=== PATIENT | male | born 1960 | race Caucasian/White ===

== ENCOUNTER 2016-05-12 13:22 | Emergency (ER) | payer SELFPAY ==
[~2016-05-12] VITALS: Ht 177.8 cm; Wt 72.6 kg
--- NOTE | 2016-05-12 13:22 | NUR ---
Pt placed in bed 6 by EMS.
[2016-05-12 13:24] VITALS: BP 176/85
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
--- NOTE | 2016-05-12 14:00 | NUR ---
[place] [employer] at bedside.
--- NOTE | 2016-05-12 14:23 | NUR ---
Patient taken to CT via gurney.
--- NOTE | 2016-05-12 14:32 | NUR ---
Patient returned from CT scan.
--- NOTE | 2016-05-12 14:48 | NUR ---
Patient ambulated to restroom with steady gait to provide UA.
[2016-05-12 15:31] VITALS: BP 176/85
--- NOTE | 2016-05-12 15:32 | NUR ---
Chart checked and completed. The patient's care was reviewed and supervised by Rashi Mendoza RN.
== END 2016-05-12 14:48 | disposition home or self-care (01) ==
LOC: MED 13:29
DX: S16.1XXA Strain of muscle, fascia and tendon at neck level, initial encounter (principal); S09.90XA Unspecified injury of head, initial encounter; R03.0 Elevated blood-pressure reading, without diagnosis of hypertension; W18.09XA Striking against other object with subsequent fall, initial encounter; Y93.89 Activity, other specified; Y92.89 Other specified places as the place of occurrence of the external cause; Y99.0 Civilian activity done for income or pay

== ENCOUNTER 2018-01-28 12:35 | Inpatient (IN) | payer MEDICAID ==
[~2018-01-28] VITALS: Ht 175.3 cm; Wt 63.5 kg
--- NOTE | 2018-01-28 12:37 | NUR ---
PATIENT AMBULATED TO BED 4 AT THIS TIME.
[2018-01-28 12:40] VITALS: BP 174/97
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
--- NOTE | 2018-01-28 12:48 | NUR ---
Dr. Bennett evaluating patient at bedside.
[2018-01-28] MEDS ORDERED: KETOROLAC 60 MG/2 ML VIAL IM ONE (12:55)
--- NOTE | 2018-01-28 13:05 | NUR ---
PT TAKEN TO [facility] VIA W/C, ACCOMPANIED BY EXECUTIVE SECRETARY.
--- NOTE | 2018-01-28 13:19 | NUR ---
pt returned from [facility] VIA W/C, ACCOMPANIED BY SCOOP OPERATOR.
[2018-01-28] MEDS ORDERED: NACL 0.9% 1,000 ML IV ONE (13:25)
--- NOTE | 2018-01-28 13:34 | NUR ---
PT TAKEN TO CT VIA GUSHAHEEN, ACCOMPANIED BY BLOCK HANDLER.
[2018-01-28 13:54] LABS: BASOPHILS % (AUTO) 0.6 % (0.0-2.0); EOSINOPHILS # (AUTO) 0.2 K/uL (0-0.4); EOSINOPHILS % (AUTO) 2.3 % (0.0-4.0); HEMATOCRIT 40.8 % (36-52); HEMOGLOBIN 13.5 g/dL (12.0-18.0); LYMPHOCYTES # (AUTO) 1.4 K/uL (2.0-11.5); LYMPHOCYTES % (AUTO) 19.7 % (20.5-51.1); MEAN CORPUSCULAR HEMOGLOBIN 30 pg (27-31); MEAN CORPUSCULAR HGB CONC 33 g/dL (33-37); MEAN CORPUSCULAR VOLUME 91.2 fL (80-94); MONOCYTES # (AUTO) 0.9 K/uL (0.8-1.0); MONOCYTES % (AUTO) 12.6 % (1.7-9.3); NEUTROPHILS # (AUTO) 4.6 K/uL (1.8-7.7); NEUTROPHILS % (AUTO) 64.8 % (42.2-75.2); PLATELET COUNT (AUTO) 265 K/uL (140-450); RED BLOOD CELL COUNT(AUTO) 4.48 MIL/uL (4.20-6.10); RED CELL DISTRIBUTION WIDTH 13.9 % (11.6-13.7); WHITE BLOOD COUNT (AUTO) 7.2 K/uL (4.8-10.8)
[2018-01-28 14:11] LABS: PROTHROMBIN TIME 9.5 secs (10.8-13.4)
[2018-01-28 14:29] LABS: ANION GAP 4.1 (8-16); CARBON DIOXIDE 34.7 mmol/L (21-32); CREATININE 0.9 mg/dL (0.7-1.3); POTASSIUM 3.8 mmol/L (3.5-5.1); TOTAL BILIRUBIN 0.2 mg/dL (0.0-1.0)
[2018-01-28 14:30] LABS: ALBUMIN 3.3 g/dL (3.4-5.0)
--- NOTE | 2018-01-28 14:34 | NUR ---
Patient appears to be SLEEPING comfortably in bed. BP 159/91. Respirations even and unlabored.WILL CONTINUE TO MONITOR.
--- NOTE | 2018-01-28 15:15 | NUR ---
RECEIVED PT ROM ER NURSE, MASON, PT IS AWAKE AND ALERT AND ORIENTED, AMBULATES AND NO SOB NOTED. PT HAS AN IV LINE ON THE RT AC G. 18, INTACT. INITIAL VITALS TAKEN AND IS WITHIN NORMAL LIMITS. PT WAS PLACED ON TELE MONITORING, ASSISTED TO THE BED, WITH SIDE RAILS UP AND CALL LIGHT WITHIN REACH. SKIN IS INTACT. NO SIGN OF DISTRESS NOTED AND WILL CONTINUE TO MONITOR PT.
--- NOTE | 2018-01-28 15:15 | NUR ---
Patient will be admitted to care of DR BELLAMY. Admited to TELE. Will go to room 111B. Belongings list completed. Report to SAMUEL DUMONT .
[2018-01-28 15:20] VITALS: BP 146/81
--- NOTE | 2018-01-28 15:25 | NUR ---
DR. MALDONADO CAME AND SPOKE TO PT. AT BEDSIDE.
--- NOTE | 2018-01-28 15:35 | NUR ---
MRSA SWAB WAS DONE TO THE PT AND SAMPLE WAS SENT TO THE LAB.
--- NOTE | 2018-01-28 15:50 | NUR ---
INITIAL ASSESSMENT DONE TO PT. PT DENIES PAIN AT THIS TIME.
[2018-01-28] MEDS: NACL 0.9% 1,000 ML IV SCH (15:58)
[2018-01-28 16:00] VITALS: BP 144/84
[2018-01-28] MEDS ORDERED: ZOLPIDEM 5 MG TAB PO PRN (16:00)
[2018-01-28] MEDS ORDERED: DOCUSATE SODIUM 100 MG GELCAP PO PRN (16:00)
[2018-01-28] MEDS ORDERED: LORazepam 2 MG/ML VIAL IM/IVP PRN (16:00)
[2018-01-28] MEDS ORDERED: ACETAMINOPHEN 325 MG TAB PO PRN (16:00)
[2018-01-28] MEDS ORDERED: ONDANSETRON 4 MG/2 ML VIAL IM/IVP PRN (16:00)
[2018-01-28 17:29] LABS: CHOL/HDL RATIO 3.3 (1-4.5); HDL CHOLESTEROL 48 mg/dL (40-60); LDL (CALC) 85 mg/dL (60-100); LIPASE 112 U/L (73-393); PHOSPHORUS 2.7 mg/dL (2.5-4.9); THYROID STIMULATING HORMONE 2.36 uIU/mL (0.34-3.74); TRIGLYCERIDES 134 mg/dL (30-150)
--- NOTE | 2018-01-28 19:08 | NUR ---
BEDSIDE REPORT GIVEN TO NADIA PAREDES -TIM. IVF INFUSING WELL. IN STABLE CONDITION.
[2018-01-28 19:09] LABS: APPEARANCE,URINE CLEAR (CLEAR); COLOR,URINE YELLOW (YELLOW); LEUKOCYTE ESTERASE ,URINE NEGATIVE (NEGATIVE); NITRITE, URINE NEGATIVE (NEGATIVE)
--- NOTE | 2018-01-28 19:10 | NUR ---
RECEIVED PT ON HIGH FOWLERS POSITION TALKING TO VISITOR AT BEDSIDE, VITAL SIGNS STABLE, SAT-96% ON ROOM AIR, DIMINISHED LUNG SOUNDS ON THE RT, NO SOB NOTED, COMPLAINING OF PAIN ON THE RT CHEST, WILL MEDICATE PRN, IVF INFUSING WELL, PLAN OF CARE DISCUSSED, SAFETY MEASURES IN PLACE, CALL LIGHT WITHIN REACH.
[2018-01-28 19:11] LABS: BILIRUBIN,URINE NEGATIVE (NEGATIVE); BLOOD, URINE NEGATIVE (NEGATIVE); UGLUCOSE NEGATIVE (NEGATIVE)
[2018-01-28] MEDS: HYDROcodone/APAP 5/325 MG 1 TAB TAB PO PRN (19:25)
--- NOTE | 2018-01-28 19:30 | NUR ---
RT SOLARES PUT PT ON VENTI MASK AT 40% PER DR'S ORDER, SAT WENT UP TO 100%, ALL NEEDS ATTENDED.
[2018-01-28 19:31] LABS: BARBITURATE, URINE NEGATIVE ng/ml (NEG <=200); BENZODIAZEPINE, URINE NEGATIVE ng/mL (NEG <=200); CANNABINOID, URINE NEGATIVE ng/mL (NEG <=50); COCAINE, URINE NEGATIVE ng/mL (NEG <=300); PHENCYCLIDINE SCREEN,URINE NEGATIVE ng/mL (NEG <=25)
[2018-01-28 19:32] LABS: OPIATE, URINE NEGATIVE ng/mL (NEG <=2000)
[2018-01-28 20:00] VITALS: BP 143/78
--- NOTE | 2018-01-28 20:00 | NUR ---
DR ARREOLA SAW THE PT, STATED TO PUT PT ON CONTINUOS PULSE OX. RT SOLARES MADE AWARE.
--- NOTE | 2018-01-28 23:20 | NUR ---
PT WENT TO CT DEPT FOR CT OF THE HEAD.
[2018-01-29] VITALS: BP 152/84
--- NOTE | 2018-01-29 00:10 | NUR ---
PT BACK FROM CT, PUT BACK ON VENTURI MASK 40% FIO2, SAT-99%, VITAL SIGNS TAKEN, BP SLIGHTLY ELEVATED, ASYMPTOMATIC, DENIES PAIN AT THIS TIME, IVF INFUSING WELL, SIGNIFICANT OTHER AT BEDSIDE, CONTINUE TO MONITOR CLOSELY.
[2018-01-29] MEDS: HYDROcodone/APAP 5/325 MG 1 TAB TAB PO PRN ×2 (01:35→18:40)
--- NOTE | 2018-01-29 02:30 | NUR ---
ROUNDS MADE, SEEN SIGNIFICANT OTHER SLEEPING BESIDE PT, CHARGE NURSE CORI TOLD HER THAT ONLY PT CAN LAY ON THE BED AND SHE CAN USE THE CHAIR INSTEAD, PT AMENABLE AT THIS TIME.
[2018-01-29] MEDS: NACL 0.9% 1,000 ML IV SCH ×3 (02:50→19:24)
[2018-01-29 04:00] VITALS: BP 139/81
--- NOTE | 2018-01-29 04:00 | NUR ---
PT SLEEPING, EASILY AROUSABLE, DENIES PAIN, NO SOB NOTED, CONTINUE ON VENTURI MASK AT 40% FIO2, MONITORED CLOSELY.
--- NOTE | 2018-01-29 06:45 | NUR ---
PT SEEN WITH MASK OFF, SAT-96-97%, EDUCATE PT THE NEED TO BE ON VENTURI MASK AT ALL TIMES, VERBALIZED UNDERSTANDING, SEEN SIGNIFICANT OTHER SLEEPING ON THE FLOOR, CHARGE NURSE CORI TOLD HER NOT TO SLEEP ON THE FLOOR AND WILL PROVIDE HER WITH ANOTHER CHAIR TO USE.
[2018-01-29 07:00] LABS: HEMATOCRIT 36.5 % (36-52); HEMOGLOBIN 12.2 g/dL (12.0-18.0); LYMPHOCYTES % (AUTO) 20.7 % (20.5-51.1); MEAN CORPUSCULAR HEMOGLOBIN 31 pg (27-31); MEAN CORPUSCULAR HGB CONC 33 g/dL (33-37); MEAN CORPUSCULAR VOLUME 92.3 fL (80-94); NEUTROPHILS % (AUTO) 61.9 % (42.2-75.2); PLATELET COUNT (AUTO) 252 K/uL (140-450); RED BLOOD CELL COUNT(AUTO) 3.96 MIL/uL (4.20-6.10); RED CELL DISTRIBUTION WIDTH 13.3 % (11.6-13.7)
[2018-01-29 07:01] LABS: BASOPHILS # (AUTO) 0.1 K/uL (0.00-0.22); BASOPHILS % (AUTO) 0.8 % (0.0-2.0); EOSINOPHILS # (AUTO) 0.2 K/uL (0-0.4); LYMPHOCYTES # (AUTO) 1.5 K/uL (2.0-11.5); MONOCYTES % (AUTO) 13.6 % (1.7-9.3); NEUTROPHILS # (AUTO) 4.2 K/uL (1.8-7.7)
[2018-01-29 07:26] LABS: CREATININE 0.9 mg/dL (0.7-1.3)
--- NOTE | 2018-01-29 07:30 | NUR ---
PT AWAKE, EATING BREAKFAST, PUT PT ON NASAL CANNULA AT 2L, SAT-97%, NO SOB NOTED, REPORT GIVEN TO TIM BAKER FOR CONTINUITY OF CARE.
[2018-01-29 07:32] LABS: CARBON DIOXIDE 33.6 mmol/L (21-32); POTASSIUM 4.2 mmol/L (3.5-5.1)
[2018-01-29 07:33] LABS: ANION GAP 4.6 (8-16)
--- NOTE | 2018-01-29 07:35 | NUR ---
RECEIVED PT FROM PHOTOGRAPHIC PRESS SCREWMAKER NURSENADIA, PT IS AWAKE LYING ON THE BED WITH O2 ON NC PLACED AT 2L, NO SOB WITH RT AC G.18 IV LINE NS AT 60ML/HR INFUSING AND INTACT. SAFETY PRECAUTION ENFORCED, BED IN LOW POSITION AND SIDE RAILS ARE UP AND CALL LIGHT WITHIN REACH, GIRLFRIEND ON THE BEDSIDE. PT DENIES PAIN AT THIS TIME AND NO SIGN OF DISTRESS NOTED. WILL CONTINUE TO MONITOR PT.
[2018-01-29 08:00] VITALS: BP 132/78
--- NOTE | 2018-01-29 08:00 | NUR ---
PT IS AWAKE AND HAVING HIS BREAKFAST, GF ON THE BEDSIDE, VITAL SIGNS WERE TAKEN AND IS STABLE AND WITHIN NORMAL LIMITS. WILL MONITOR PT.
--- NOTE | 2018-01-29 08:30 | NUR ---
PATIENT HAS BEEN SCREENED AND CATEGORIZED HIGH NUTRITION RISK. PATIENT WILL BE SEEN WITHIN 1-2 DAYS OF ADMISSION. 01/29/18 01/30/[address]
[2018-01-29] MEDS: MORPHINE SULFATE 2 MG/ML SYR IVP PRN ×3 (10:37→20:51)
--- NOTE | 2018-01-29 10:37 | NUR ---
PT IS AWAKE, WITH GIRLFRIEND ON THE BEDSIDE, PT VERBALIZED A PAIN RATE OF 8/10, MEDICATED WITH MORPHINE VIA IVP AND PT TOLERATED IT, VITAL SIGNS WAS CHECKED AND WITHIN NORMAL LIMITS. WILL RE-ASSESS PAIN IN AN HOUR AND MONITOR PT.
--- NOTE | 2018-01-29 12:17 | NUR ---
01/29/18 RD INITIAL ASSESSMENT COMPLETED PLEASE REFER TO NUTRITION ASSESSMENT UNDER CARE ACTIVITY FOR ESTIMATED NUTRITIONAL NEEDS. 1. CONTINUE REGULAR DIET TOLERATED 2. RD PROVIDED GENERAL HEALTHY EATING EDUCATION AND HANDOUT. PT ACCEPTED. 3. RD TO FOLLOW-UP 5-7 DAYS, LOW RISK TONEY PARKER, RD
[2018-01-29 12:31] LABS: FOLIC ACID 11.1 ng/mL (>3.0)
--- NOTE | 2018-01-29 13:00 | NUR ---
ENDORSED PT TO AM RN, CRISTINE FOR CONTINUITY OF CARE. PT IOS STABLE AT THIS TIME, V/S ARE WITHIN NORMAL LIMITS.
--- NOTE | 2018-01-29 13:01 | NUR ---
RECEIVED BEDSIDE REPORT FROM SAMUEL. PATIENT SHOWS NO SIGNS OF DISTRESS ON 2L NC. O2SAT MONITOR AT BEDSIDE. ALERT AND ORIENTEDX4. R AC 18G INFUSING NS AT 60. CLEAN, DRY AND INTACT. NO COMPLAINTS AT THIS TIME. BED IN LOW POSITION. CALL LIGHT WITHIN REACH. WILL CONTINUE TO MONITOR THE PATIENT
--- NOTE | 2018-01-29 14:45 | NUR ---
AWAKE AND ALERT RESPONSIVE TOLERATED INCENTIVE SPIROMETRY THERAPY WELL WITHOUT INCIDENT ENCOURAGED PATIENT WITH ACKNOWLEDGEMENT TO USE IS EVERY 1-2 HOURS WHILE AWAKE
--- NOTE | 2018-01-29 15:17 | NUR ---
PATIENT IN NO SIGNS OF DISTRESS. BED IN LOW POSITION. WILL CONTINUE OT MONITOR. PT WATCHING TV
[2018-01-29 16:00] VITALS: BP 148/80
--- NOTE | 2018-01-29 16:56 | NUR ---
PATIENT IS SLEEPING. NO SIGNS OF DISTRESS ON 2L NC. WILL CONTINUE TO MONITOR THE PATIENT. GIRLFRIEND AT BEDSIDE
--- NOTE | 2018-01-29 18:45 | NUR ---
ADMINISTERED PAIN MED. PATIENT AMBULATED TO THE RESTROOM. WILL CONTINUE TO MONITOR THE PATIENT
--- NOTE | 2018-01-29 19:20 | NUR ---
GAVE BEDSIDE REPORT TO IP LITIGATION ASSOCIATE NURSE. PATIENT ENDORSED IN STABLE CONDITION. ENDORSED ALIYAH TO DO PAIN REASSESSMENT FOR [place]
--- NOTE | 2018-01-29 19:21 | NUR ---
RECD. RESTING IN BED, AWAKE, A/OX4. NOTED BRUISE ON THE RIGHT SIDE OF FACE. RESPIRATION EVEN AND UNLABORED. IV OF NS AT 60 ML/HR INFUSING, RIGHT AC G20. ON 02 AT 2 LITERS VIA N/C, SATURATING 97%. LUNGS CLEAR ON BILATERAL AUSCULTATION. PLAN OF CARE FOR THE SHIFT DISCUSSED. VERBALIZED UNDERSTANDING. PAIN IN THE ABDOMEN 04/24, WAS MEDICATED BY AM NURSE AT 1840. WILL CONTINUE TO MONITOR AND MEDICATE ORDERED. AT THE BEDSIDE.
--- NOTE | 2018-01-29 19:45 | NUR ---
DR. ARREOLA CAME AND CHECKED PATIENT, EXPLAINED THAT HE IS NOT DOING SURGERY, RIGHT PNEUMOTHORAX SMALL BUT WILL CONTINUE TO OBSERVATION.
[2018-01-29 20:00] VITALS: BP 153/88
--- NOTE | 2018-01-29 20:00 | NUR ---
Patient's Plan of Care was discussed and reviewed with CLINICAL PATHOLOGIST: ALIYAH ORELLANA LVN.
--- NOTE | 2018-01-29 21:00 | NUR ---
RESTING IN BED COMFORTABLY, 02 SAT - 97%.
[2018-01-30] VITALS: BP 147/76
--- NOTE | 2018-01-30 | NUR ---
ASLEEP IN BED, NO COMPLAINT OF PAIN 0/10.
[2018-01-30 04:00] VITALS: BP 128/74
--- NOTE | 2018-01-30 07:00 | NUR ---
ABLE TO SLEEP WELL. ALL NEEDS ATTENDED. NO SOB NOTED DURING SHIFT. CONDITION REMAIN STABLE. WILL ENDORSE TO AM NURSE FOR CONTINUITY OF CARE.
--- NOTE | 2018-01-30 07:20 | NUR ---
ENDORSED TO TIM GUTHRIE FOR CONTINUITY OF CARE.
[2018-01-30 07:28] LABS: BASOPHILS % (AUTO) 0.6 % (0.0-2.0); EOSINOPHILS # (AUTO) 0.1 K/uL (0-0.4); EOSINOPHILS % (AUTO) 2.2 % (0.0-4.0); HEMATOCRIT 37.7 % (36-52); HEMOGLOBIN 12.5 g/dL (12.0-18.0); LYMPHOCYTES # (AUTO) 1.6 K/uL (2.0-11.5); LYMPHOCYTES % (AUTO) 25.8 % (20.5-51.1); MEAN CORPUSCULAR HEMOGLOBIN 30 pg (27-31); MEAN CORPUSCULAR HGB CONC 33 g/dL (33-37); MEAN CORPUSCULAR VOLUME 90.8 fL (80-94); MONOCYTES # (AUTO) 0.8 K/uL (0.8-1.0); MONOCYTES % (AUTO) 13.3 % (1.7-9.3); NEUTROPHILS # (AUTO) 3.7 K/uL (1.8-7.7); NEUTROPHILS % (AUTO) 58.1 % (42.2-75.2); PLATELET COUNT (AUTO) 255 K/uL (140-450); RED BLOOD CELL COUNT(AUTO) 4.15 MIL/uL (4.20-6.10); RED CELL DISTRIBUTION WIDTH 13.6 % (11.6-13.7); WHITE BLOOD COUNT (AUTO) 6.4 K/uL (4.8-10.8)
--- NOTE | 2018-01-30 07:30 | NUR ---
RECEIVED PT REPORT FROM CAR ELECTRONICS INSTALLER RN AT BEDSIDE. PT IS SLEEPING, AROUSED TO NAME, OX4. RESPIRATION EVEN AND UNLABORED. IV CATH TO RIGHT AC 20G, INTACT AND ASYMPTOMATIC. ON 2L O2 VIA NC. LUNGS CLEAR ON BILATERAL AUSCULTATION. PLAN OF CARE DISCUSSED. PT VERBALIZED UNDERSTANDING. NO C/O AT THIS TIME. WILL CONTINUE TO MONITOR. AT THE BEDSIDE.
[2018-01-30 08:00] VITALS: BP 146/81
[2018-01-30 08:07] LABS: ANION GAP 7.1 (8-16); CARBON DIOXIDE 32.2 mmol/L (21-32); CREATININE 0.8 mg/dL (0.7-1.3); POTASSIUM 4.3 mmol/L (3.5-5.1)
--- NOTE | 2018-01-30 08:30 | NUR ---
O2 SAT 91% TO 95% ON ROOM AIR. NO S/S OF ACUTE DISTRESS.
[2018-01-30] MEDS ORDERED: ACET-2863 PO (08:57)
[2018-01-30] MEDS: MORPHINE SULFATE 2 MG/ML SYR IVP PRN (12:03)
--- NOTE | 2018-01-30 12:10 | NUR ---
PT WANTS SHOWER. IV CATH WRAPPED.
--- NOTE | 2018-01-30 13:05 | NUR ---
PT DISCHARGED PER MD ORDER. PT DISCHARGE INSTRUCTION AND MED TEACHING PROVIDED. PT VERBALIZED UNDERSTANDING. NO S/S OF ACUTE DISTRESS NOTED. IV DC'ED, TIP INTACT, PRESSURE APPLIED. PT LEFT WITH HIS , IN STABLE CONDITION. PT LEFT WITH ALL HIS BELONGINGS.
== END 2018-01-30 13:05 | disposition home or self-care (01) | DRG 135 ==
LOC: MED 12:35 → MTU 14:45
PROVIDERS: ADMIT General Practice; ATTEND General Practice
DX: S27.2XXA Traumatic hemopneumothorax, initial encounter (principal); J96.00 Acute respiratory failure, unspecified whether with hypoxia or hypercapnia; E44.0 Moderate protein-calorie malnutrition; S22.41XA Multiple fractures of ribs, right side, initial encounter for closed fracture; F15.10 Other stimulant abuse, uncomplicated; F17.210 Nicotine dependence, cigarettes, uncomplicated; F90.9 Attention-deficit hyperactivity disorder, unspecified type; W03.XXXA Other fall on same level due to collision with another person, initial encounter; F10.20 Alcohol dependence, uncomplicated; Y90.0 Blood alcohol level of less than 20 mg/100 ml; J98.11 Atelectasis; Y93.89 Activity, other specified; Y92.89 Other specified places as the place of occurrence of the external cause; Y99.8 Other external cause status; Z71.41 Alcohol abuse counseling and surveillance of alcoholic; Z71.51 Drug abuse counseling and surveillance of drug abuser
CPT/HCPCS: 36415; 70450; 71045; 71101; 76604; 80048; 80053; 80305; 81003; 82140; 82607; 82746; 83036; 83690; 83735; 83880; 84100; 84134; 84443; 85025; 85610; 85730; 87081; 93005; 96360; 96361; 96372; 99285; G0482; J1885; J2270; J7030; Q0092

== ENCOUNTER 2018-06-06 06:19 | Inpatient (IN) | payer MEDICAID ==
[~2018-06-06] VITALS: Ht 177.8 cm; Wt 72.6 kg
[~2018-06-06 06:19] MED LIST: HYDR-5123 PO
[2018-06-06 06:26] VITALS: BP 182/95
--- NOTE | 2018-06-06 06:31 | NUR ---
Amb to bed 9 per self.
--- NOTE | 2018-06-06 06:45 | NUR ---
PT PRESENTS TO ED FOR EVALUATION OF ABDOMINAL PAIN X 3 HRS. PT ADMITTED THAT HE USED METH YESTERDAY. AAO X4, GCS 15, AMBULATORY WITH STEADY GAIT. RESPIATIONS EVEN AND UNLABORED, BL LUNG CLEAR. SKIN WARM/PINK/DRY, +PMSC. ABDOMEN FLAT. FIRM TO TOUCH, ACTIVE BOWEL SOUND X4. VSS, STATED PAIN 10/10. DR. ARMSTRONG MADE AWARE OF PATIENT STATUS. WILL CONTINEU TO MONITOR
--- NOTE | 2018-06-06 07:11 | NUR ---
REPORT GIVEN TO MARTÍNEZ DUMONT
[2018-06-06] MEDS ORDERED: NACL 0.9% 1,000 ML IV ONE (07:19)
[2018-06-06] MEDS ORDERED: NACL 0.9% 1,000 ML IV SCH (07:19)
[2018-06-06] MEDS ORDERED: MORPHINE SULFATE 4 MG/ML SYR IVP ONE (07:20)
[2018-06-06] MEDS ORDERED: KETOROLAC 30 MG/ML VIAL IVP ONE (07:20)
[2018-06-06] MEDS ORDERED: ONDANSETRON 4 MG/2 ML VIAL IVP ONE (07:20)
[2018-06-06 08:43] LABS: ANION GAP 6.6 (8-16); CARBON DIOXIDE 33.4 mmol/L (21-32); CHLORIDE 105 mmol/L (98-107); CREATININE 1.1 mg/dL (0.7-1.3); GFR ARICAN-AMERICAN 89 mL/min (>90); GLUCOSE 102 mg/dL (74-106); SODIUM SERUM 141 mmol/L (136-145); UREA NITROGEN, BLOOD 18 mg/dL (7-18)
[2018-06-06 08:44] LABS: BILIRUBIN,URINE NEGATIVE (NEGATIVE); BLOOD, URINE 3+ (NEGATIVE); COLOR,URINE YELLOW (YELLOW); LEUKOCYTE ESTERASE ,URINE NEGATIVE (NEGATIVE); NITRITE, URINE NEGATIVE (NEGATIVE); UGLUCOSE NEGATIVE (NEGATIVE)
[2018-06-06 08:45] LABS: BASOPHILS % (AUTO) 0.4 % (0.0-2.0); EOSINOPHILS # (AUTO) 0.1 K/uL (0-0.4); EOSINOPHILS % (AUTO) 0.6 % (0.0-4.0); HEMATOCRIT 43.2 % (36-52); HEMOGLOBIN 14.1 g/dL (12.0-18.0); LYMPHOCYTES # (AUTO) 0.8 K/uL (2.0-11.5); LYMPHOCYTES % (AUTO) 8.3 % (20.5-51.1); MEAN CORPUSCULAR HEMOGLOBIN 30 pg (27-31); MEAN CORPUSCULAR HGB CONC 33 g/dL (33-37); MEAN CORPUSCULAR VOLUME 91.1 fL (80-94); MONOCYTES # (AUTO) 0.8 K/uL (0.8-1.0); MONOCYTES % (AUTO) 7.9 % (1.7-9.3); NEUTROPHILS # (AUTO) 8.3 K/uL (1.8-7.7); NEUTROPHILS % (AUTO) 82.8 % (42.2-75.2); PLATELET COUNT (AUTO) 255 K/uL (140-450); RED BLOOD CELL COUNT(AUTO) 4.74 MIL/uL (4.20-6.10); RED CELL DISTRIBUTION WIDTH 14.1 % (11.6-13.7)
[2018-06-06 08:52] LABS: BARBITURATE, URINE NEG. ng/ml (NEG <=200); BENZODIAZEPINE, URINE NEG. ng/mL (NEG <=200); CANNABINOID, URINE POS. ng/mL (NEG <=50); COCAINE, URINE NEG. ng/mL (NEG <=300); OPIATE, URINE NEG. ng/mL (NEG <=2000); PHENCYCLIDINE SCREEN,URINE NEG. ng/mL (NEG <=25)
[2018-06-06 08:54] LABS: ALBUMIN 3.7 g/dL (3.4-5.0); AMYLASE 47 U/L (25-115); ASPARTATE AMINOTRANSFERASE 22 U/L (15-37); LIPASE 103 U/L (73-393); TOTAL BILIRUBIN 0.4 mg/dL (0.0-1.0)
[2018-06-06 08:57] LABS: APPEARANCE,URINE SLIGHTLY HAZY (CLEAR)
[2018-06-06 08:58] LABS: RBC,URINE 11-20 (MOD) /HPF (0-5)
[2018-06-06 09:00] LABS: WBC,URINE 0-5 (RARE) /HPF (0-5)
--- NOTE | 2018-06-06 09:20 | NUR ---
PT TAKEN TO CT VIA ADÁN
[2018-06-06] MEDS ORDERED: PIPERACILLIN/TAZOBACTAM 3.375 GM in DEXTROSE 5% 50 ML IV ONE (10:35)
[2018-06-06] MEDS ORDERED: GENTAMICIN 80 MG in DEXTROSE 5% 100 ML IV ONE (10:35)
[2018-06-06] MEDS ORDERED: PIPERACILLIN/TAZOBACTAM 3.375 GM VIAL IV ONE (11:23)
[2018-06-06] MEDS ORDERED: GENTAMICIN 80 MG/2 ML VIAL ONE (11:24)
[2018-06-06] MEDS ORDERED: DEXT 5% / NACL 0.45% 1,000 ML IV SCH (11:43)
[2018-06-06] MEDS ORDERED: HYDROcodone/APAP 7.5/325 MG 1 TAB PO PRN (11:45)
[2018-06-06] MEDS ORDERED: ONDANSETRON 4 MG/2 ML VIAL IVP PRN (11:45)
[2018-06-06] MEDS ORDERED: ACETAMINOPHEN 325 MG TAB PO PRN (11:45)
[2018-06-06 12:18] LABS: PROTHROMBIN TIME 9.8 secs (10.8-13.4)
[2018-06-06 12:31] LABS: FREE T4 (FREE THYROXINE) 0.84 ng/dL (0.76-1.46); MAGNESIUM 1.9 mg/dL (1.8-2.4); PHOSPHORUS 2.2 mg/dL (2.5-4.9); THYROID STIMULATING HORMONE 1.81 uIU/mL (0.34-3.74)
--- NOTE | 2018-06-06 13:04 | NUR ---
Patient will be admitted to care of DR. BELLAMY. Admited to MED SURG. Will go to room 105A. Belongings list completed. Report to TIM GUTHRIE.
--- NOTE | 2018-06-06 13:45 | NUR ---
RECEIVED PT FROM ER NURSE. PT IS ABLE TO AMBULATE FROM GURNEY TO BED. GAIT STEADY. PT IS AAOX3, NO S/S OF ACUTE DISTRESS NOTED ON ROOM AIR. LUNG SOUNDS CLEAR, BOWEL SOUNDS ACTIVE. DENIES ANY PAIN. MRSA SWAB DONE, VITALS CHECKED. IV RIGHT UA 20G, FLUSHED, PATENT AND INTACT. ORIENTED PT TO ROOM. DISCUSSES POC WITH PT. PT VERBALIZED UNDERSTANDING. CALL LIGHT WITHIN REACH. WILL CONTINUE TO MONITOR.
[2018-06-06 14:00] VITALS: BP 127/83
[2018-06-06] MEDS ORDERED: SODIUM PHOS / POTASSIUM PHOS 1 PKT PDR PO SCH (15:48)
--- NOTE | 2018-06-06 15:50 | NUR ---
PROVIDED PT WITH URINE STRAINER.
[2018-06-06 16:00] VITALS: BP 123/77
--- NOTE | 2018-06-06 16:00 | NUR ---
VITALS TAKEN. PT DENIES ANY PAIN.
[2018-06-06] MEDS ORDERED: KETOROLAC 30 MG/ML VIAL IM PRN (16:25)
[2018-06-06] MEDS ORDERED: NICOTINE TRANSD SYS 14 MG/24 HR PATCH TD SCH (16:39)
[2018-06-06] MEDS ORDERED: LISI-420 PO (17:14)
[2018-06-06] MEDS: NACL 0.9% 1,000 ML IV SCH (17:23)
--- NOTE | 2018-06-06 18:00 | NUR ---
PT EATING DINNER INDEPENDENTLY, NO S/S OF ACUTE DISTRESS.
--- NOTE | 2018-06-06 19:25 | NUR ---
ENDORSED PT TO CUSTOMER ENGAGEMENT REPRESENTATIVE RN. PT IN STABLE CONDITION.
--- NOTE | 2018-06-06 19:30 | NUR ---
RECEIVED FROM AM RN IN BED AWAKE AND SITTING UP . ABLE TO VERBALIZE NEEDS WELL. DX. OF PYELONEPHRITIS. CALL LIGHT USE EXPLAINED AND WITH IN REACH. ROM X 4. CLEAR SPEECH. A/O X 4. NO SOB. DENIES PAIN AT THIS TIME. IVF SITE INTACT AND NO INFILTRATION NOTED TO LEFT UPPER ARM #20. INDEPENDENT.
[2018-06-06] MEDS: DOCUSATE SODIUM 100 MG GELCAP PO SCH (21:02)
--- NOTE | 2018-06-06 21:03 | NUR ---
P.O. MEDICATION GIVEN. NO COMPLAINTS OF ANY PAIN DONE AT THIS TIME. REMINDED TO MAKE US AWARE IF WITH URINE RT ORDER BY MD TO STRAIN. "OK" VERBALIZES WELL. CALL LIGHT WITH IN REACH.
[2018-06-07] MEDS: NACL 0.9% 1,000 ML IV SCH ×2 (00:44→08:25)
[2018-06-07 00:45] VITALS: BP 124/78
--- NOTE | 2018-06-07 01:07 | NUR ---
SLEEPING WELL. WAKES UP EASILY WHEN TOUCHED. VITAL SIGNS WITH IN NORMAL LIMITS. CALL LIGHT WITH IN REACH. IVF SITE INTACT AND NO INFILTRATION.
--- NOTE | 2018-06-07 02:59 | NUR ---
PT. SLEEPING. NO RESTLESSNESS NOTED. IVF SITE INTACT AND NO INFILTRATION. CALL LIGHT WITH IN REACH.
--- NOTE | 2018-06-07 05:43 | NUR ---
PT. BEEN TO RESTROOM . URINE STRAINED. NO STONE NOTED YET. NO PAIN COMPLAINTS THIS SHIFT. VERBALIZES WELL. ABLE TO USE CALL LIGHT FOR HELP. INDEPENDENT. SLEPT WELL THIS SHIFT.
--- NOTE | 2018-06-07 06:48 | NUR ---
AWAKE AT THIS TIME. GOOD AFFECT . CALL LIGHT WITH IN REACH. NO COMPLAINTS OF ANY PAIN DONE THIS SHIFT.
--- NOTE | 2018-06-07 07:25 | NUR ---
RECEIVED REPORT FROM TRANSPORTATION PLANNER NURSE FOR CONTINUITY OF CARE. PT IN STABLE CONDITION. RESPIRATIONS EVEN AND UNLABORED. IV INTACT AND PATENT. SAFETY MEASURES IN PLACE. CALL LIGHT AT BEDSIDE. BED IN LOW POSITION. WILL CONTINUE TO MONITOR.
[2018-06-07 07:50] LABS: BASOPHILS % (AUTO) 0.5 % (0.0-2.0); EOSINOPHILS # (AUTO) 0.1 K/uL (0-0.4); HEMATOCRIT 41.3 % (36-52); HEMOGLOBIN 13.5 g/dL (12.0-18.0); LYMPHOCYTES # (AUTO) 1.6 K/uL (2.0-11.5); LYMPHOCYTES % (AUTO) 21.7 % (20.5-51.1); MEAN CORPUSCULAR HEMOGLOBIN 30 pg (27-31); MEAN CORPUSCULAR HGB CONC 33 g/dL (33-37); MEAN CORPUSCULAR VOLUME 90.8 fL (80-94); MONOCYTES # (AUTO) 0.9 K/uL (0.8-1.0); MONOCYTES % (AUTO) 12.3 % (1.7-9.3); NEUTROPHILS # (AUTO) 4.6 K/uL (1.8-7.7); NEUTROPHILS % (AUTO) 63.5 % (42.2-75.2); PLATELET COUNT (AUTO) 238 K/uL (140-450); RED BLOOD CELL COUNT(AUTO) 4.55 MIL/uL (4.20-6.10); RED CELL DISTRIBUTION WIDTH 14.5 % (11.6-13.7); WHITE BLOOD COUNT (AUTO) 7.3 K/uL (4.8-10.8)
[2018-06-07 08:00] VITALS: BP 144/94
[2018-06-07 08:03] LABS: MAGNESIUM 1.8 mg/dL (1.8-2.4)
[2018-06-07 08:04] LABS: ANION GAP 9.8 (8-16); CARBON DIOXIDE 30.1 mmol/L (21-32); CREATININE 0.9 mg/dL (0.7-1.3); POTASSIUM 3.9 mmol/L (3.5-5.1)
[2018-06-07] MEDS ORDERED: TAMSULOSIN 0.4 MG CAP PO SCH (08:30)
[2018-06-07 08:41] LABS: CHOL/HDL RATIO 4.9 (1-4.5)
[2018-06-07] MEDS ORDERED: LISINOPRIL 20 MG TAB PO SCH (09:00)
[2018-06-07] MEDS ORDERED: SODIUM PHOS / POTASSIUM PHOS 1 PKT PDR PO SCH (09:00)
[2018-06-07] MEDS ORDERED: PANTOPRAZOLE 40 MG INJ VIAL IVP SCH (09:00)
[2018-06-07] MEDS ORDERED: NICOTINE TRANSD SYS 14 MG/24 HR PATCH TD SCH (09:00)
[2018-06-07] MEDS ORDERED: LACTOBACILLUS RHAMNOSUS GG 1 EACH CAP PO SCH (09:00)
[2018-06-07] MEDS: DOCUSATE SODIUM 100 MG GELCAP PO SCH (09:00)
--- NOTE | 2018-06-07 09:00 | NUR ---
GAVE ORDERED MEDICATIONS AT THIS TIME. PT TOLERATED WELL. WILL CONTINUE TO MONITOR.
--- NOTE | 2018-06-07 09:23 | NUR ---
PATIENT HAS BEEN SCREENED AND CATEGORIZED MODERATE NUTRITION RISK. PATIENT WILL BE SEEN WITHIN 3-5 DAYS OF ADMISSION. 06/09/18-04/10/[address]
[2018-06-07] MEDS ORDERED: IBUP-2213 PO (10:23)
[2018-06-07] MEDS ORDERED: TAMS0.4C96 PO (10:23)
[2018-06-07] MEDS ORDERED: NITR100C7 PO (10:23)
--- NOTE | 2018-06-07 10:33 | NUR ---
PT IN SHOWER AT THIS TIME. WILL CONTINUE TO MONITOR.
--- NOTE | 2018-06-07 12:55 | NUR ---
GAVE DISCHARGE INSTRUCTIONS AT THIS TIME. PT VERBALIZED UNDERSTANDING OF INSTRUCTIONS AND WHERE TO SKEET OPERATOR MEDICATIONS FROM PHARMACY ([facility] [address]). PT WAS ASKED IF HOMELESS, PT STATED HE HAS A HOME AT THIS TIME. IV REMOVED, LUMEN INTACT. ID BAND REMOVED. PT REFUSED WHEELCHAIR. PT WAS ESCORTED TO LOBBY IN STABLE CONDITION.
--- NOTE | 2018-06-10 08:17 | NUR ---
Late entry Gentamycin was completed. Confirmed with RN end time 1255 Addendum: 06/10/18 at 0821 by [email or web address] IV fluids 0.9 NS IV running at 100cc/hr ended in the ED at 1305 upon transfer.
== END 2018-06-07 12:55 | disposition home or self-care (01) | DRG 465 ==
LOC: MED 06:19 → MTU 11:43
PROVIDERS: ADMIT General Practice; ATTEND General Practice
DX: N20.0 Calculus of kidney (principal); E83.39 Other disorders of phosphorus metabolism; N12 Tubulo-interstitial nephritis, not specified as acute or chronic; I10 Essential (primary) hypertension; F17.210 Nicotine dependence, cigarettes, uncomplicated; M54.5 Low back pain; M47.816 Spondylosis without myelopathy or radiculopathy, lumbar region; I70.0 Atherosclerosis of aorta; F15.10 Other stimulant abuse, uncomplicated; F12.10 Cannabis abuse, uncomplicated; Z82.49 Family history of ischemic heart disease and other diseases of the circulatory system
CPT/HCPCS: 36415; 71045; 80048; 80053; 80305; 81001; 82140; 82150; 83036; 83690; 83735; 83880; 84100; 84439; 84443; 84484; 85025; 85610; 85730; 87081; 93005; 96361; 96374; 96375; 99285; C9113; G0482; J0696; J1580; J1885; J2270; J2405; J2543; J7030; J7060; Q0092; Q9967

== ENCOUNTER 2019-07-10 13:06 | Emergency (ER) | payer SELFPAY ==
[~2019-07-10] VITALS: Ht 170.2 cm; Wt 70.8 kg
[~2019-07-10 13:06] MED LIST changes: +IBUP-2213 PO; +LISI-420 PO; +NITR100C7 PO; +TAMS0.4C96 PO
[2019-07-10 13:08] VITALS: BP 158/106
[2019-07-10] MEDS ORDERED: NITROGLYCERIN 0.4 MG TAB SL ONE (13:45)
[2019-07-10] MEDS ORDERED: ASPIRIN 81 MG TAB.CHEW PO ONE (13:45)
[2019-07-10 14:43] LABS: BASOPHILS % (AUTO) 0.1 % (0.0-2.0); EOSINOPHILS # (AUTO) 0.1 K/uL (0-0.4); EOSINOPHILS % (AUTO) 2.4 % (0.0-4.0); HEMATOCRIT 42.2 % (36-52); LYMPHOCYTES # (AUTO) 1.9 K/uL (2.0-11.5); LYMPHOCYTES % (AUTO) 33.1 % (20.5-51.1); MEAN CORPUSCULAR HEMOGLOBIN 31 pg (27-31); MEAN CORPUSCULAR HGB CONC 33 g/dL (33-37); MEAN CORPUSCULAR VOLUME 92.4 fL (80-94); MONOCYTES # (AUTO) 0.6 K/uL (0.8-1.0); MONOCYTES % (AUTO) 10.6 % (1.7-9.3); NEUTROPHILS # (AUTO) 3.1 K/uL (1.8-7.7); NEUTROPHILS % (AUTO) 53.8 % (42.2-75.2); PLATELET COUNT (AUTO) 273 K/uL (140-450); RED BLOOD CELL COUNT(AUTO) 4.57 MIL/uL (4.20-6.10); WHITE BLOOD COUNT (AUTO) 5.7 K/uL (4.8-10.8)
[2019-07-10 15:20] LABS: ALBUMIN 3.5 g/dL (3.4-5.0); CARBON DIOXIDE 34.1 mmol/L (21-32); POTASSIUM 4.1 mmol/L (3.5-5.1); TOTAL BILIRUBIN 0.2 mg/dL (0.0-1.0)
[2019-07-10] MEDS ORDERED: KETOROLAC 30 MG/ML VIAL IVP ONE (15:25)
[2019-07-10 16:15] VITALS: BP 151/90
== END 2019-07-10 16:16 | disposition home or self-care (01) ==
LOC: MED 13:06
DX: S29.011A Strain of muscle and tendon of front wall of thorax, initial encounter (principal); F17.210 Nicotine dependence, cigarettes, uncomplicated; I10 Essential (primary) hypertension; Y93.89 Activity, other specified; Y92.89 Other specified places as the place of occurrence of the external cause; Y99.8 Other external cause status
CPT/HCPCS: 36415; 71045; 80053; 84484; 85025; 93005; 96374; 99285; J1885

== ENCOUNTER 2019-09-29 02:05 | Emergency (ER) | payer SELFPAY ==
[~2019-09-29] VITALS: Ht 177.8 cm; Wt 72.6 kg
[2019-09-29 02:37] VITALS: BP 138/84
--- NOTE | 2019-09-29 02:45 | NUR ---
Note margarita in EDM - 09/29/19 at 0305 by MEDJJ 59 YEAR OLD MALE COMPLAINS OF CHEST PAIN THAT RADIATES TO RIGHT ARM X 3 WEEKS. PT STATES IT IS A DULL PAIN. DENIES SOB, DENIES N/V/D. PT AOX4, BREATHING EVEN AND UNLABORED, SKIN WARM AND DRY. BED IN LOWEST POSITION, LOCKED, BED RAIL UPX1. PMH - GRAVES DISEASE ALLERGIES - PCN, SULFAS
--- NOTE | 2019-09-29 02:45 | NUR ---
59 YEAR OLD MALE COMPLAINS OF CHEST PAIN THAT RADIATES TO RIGHT ARM X 3 WEEKS. PT STATES IT IS A DULL PAIN. DENIES SOB, DENIES N/V/D. PT AOX4, BREATHING EVEN AND UNLABORED, SKIN WARM AND DRY. BED IN LOWEST POSITION, LOCKED, BED RAIL UPX1. PMH - DENIES ALLERGIES - NKA
--- NOTE | 2019-09-29 02:49 | NUR ---
PT AMBULATED TO BED 6
--- NOTE | 2019-09-29 02:59 | NUR ---
Damian avila in [facility] - 09/29/19 at 0300 by [email or web address] PT TRANSFERRED TO BED 12 WITH STEADY GAIT.
[2019-09-29] MEDS ORDERED: KETOROLAC 60 MG/2 ML VIAL IM ONE (03:25)
--- NOTE | 2019-09-29 04:10 | NUR ---
PT ALERT AND AWAKE, BREATHING EVEN AND UNLABORED
[2019-09-29 04:45] VITALS: BP 138/76
--- NOTE | 2019-09-29 04:45 | NUR ---
Patient discharged with v/s stable. Written and verbal after care instructions about cervical radiculopathy given and explained. Patient alert, oriented and verbalized understanding of instructions. Ambulatory with steady gait. All questions addressed prior to discharge. ID band removed. Patient advised to follow up with PMD. Rx of robaxin and motrin given. Patient educated on indication of medication including possible reaction and side effects. Opportunity to ask questions provided and answered.
== END 2019-09-29 04:45 | disposition home or self-care (01) ==
LOC: MED 02:05
DX: S16.1XXA Strain of muscle, fascia and tendon at neck level, initial encounter (principal); F17.200 Nicotine dependence, unspecified, uncomplicated; I10 Essential (primary) hypertension; M50.31 Other cervical disc degeneration, high cervical region; M50.321 Other cervical disc degeneration at C4-C5 level; Z79.899 Other long term (current) drug therapy; X58.XXXA Exposure to other specified factors, initial encounter; Y93.89 Activity, other specified; Y92.89 Other specified places as the place of occurrence of the external cause; Y99.8 Other external cause status
CPT/HCPCS: 72040; 93005; 96372; 99283; J1885

== ENCOUNTER 2021-07-20 06:40 | Emergency (ER) | payer SELFPAY ==
[~2021-07-20] VITALS: Ht 177.8 cm; Wt 72.6 kg
[~2021-07-20 06:40] MED LIST changes: +HYDR-5080 PO; -HYDR-5123 PO; -LISI-420 PO; +LISI-487 PO
[2021-07-20 06:44] VITALS: BP 165/110
[2021-07-20] MEDS ORDERED: KETOROLAC 15 MG/ML VIAL IM ONE (07:15)
[2021-07-20] MEDS ORDERED: IBUP-1842 PO (08:17)
[2021-07-20 08:50] VITALS: BP 148/97
== END 2021-07-20 08:50 | disposition home or self-care (01) ==
LOC: MED 06:40
DX: M25.511 Pain in right shoulder (principal); M54.50 Low back pain, unspecified; I10 Essential (primary) hypertension; F17.210 Nicotine dependence, cigarettes, uncomplicated; Z98.890 Other specified postprocedural states; Z79.1 Long term (current) use of non-steroidal anti-inflammatories (NSAID); Z79.2 Long term (current) use of antibiotics; Z79.891 Long term (current) use of opiate analgesic; Z79.899 Other long term (current) drug therapy
CPT/HCPCS: 73020; 96372; 99283; J1885; Q0092

== ENCOUNTER 2022-03-06 10:32 | Emergency (ER) | payer SELFPAY ==
[~2022-03-06] VITALS: Ht 180.3 cm; Wt 72.6 kg
[~2022-03-06 10:32] MED LIST changes: +IBUP-1842 PO
[2022-03-06 11:19] VITALS: BP 175/97
[2022-03-06] MEDS ORDERED: DOXY-690 PO (13:39)
--- NOTE | 2022-03-06 14:08 | NUR ---
ATTEMPTED TO D/C PT. PT LEFT WITHOUT D/C PAPERS. RX OF DOXYCYCLINE TO PTS PHARMACY
--- NOTE | 2022-03-06 15:09 | NUR ---
PT RETURNED TO ER FOR D/C PAPERS, GIVEN AND EXPLAINED.
== END 2022-03-06 14:08 | disposition home or self-care (01) ==
LOC: MED 10:32
DX: L03.113 Cellulitis of right upper limb (principal)
CPT/HCPCS: 73130; 99283

== ENCOUNTER 2023-02-24 18:04 | Emergency (ER) | payer MEDICAID ==
[~2023-02-24] VITALS: Ht 180.3 cm; Wt 76.2 kg
[~2023-02-24 18:04] MED LIST changes: +DOXY-690 PO
[2023-02-24 18:12] VITALS: BP 158/94; PULSE 86; RESP 20; TEMP 98; O2SAT 98
[2023-02-24] MEDS ORDERED: LIDOCAINE MPF 1% 10 MG/ML VIAL INJ ONE (19:05)
[2023-02-24] MEDS ORDERED: BACITRACIN OINT 500 UNITS/GM PKT TP ONE ×2 (19:05→20:58)
[2023-02-24 20:35] VITALS: BP 130/89; PULSE 100; RESP 20; TEMP 98; O2SAT 98
== END 2023-02-24 20:35 | disposition home or self-care (01) ==
LOC: MED 18:04
DX: S61.412A Laceration without foreign body of left hand, initial encounter (principal); S20.312A Abrasion of left front wall of thorax, initial encounter; I10 Essential (primary) hypertension; Z79.899 Other long term (current) drug therapy; W22.8XXA Striking against or struck by other objects, initial encounter; Y93.89 Activity, other specified; Y92.89 Other specified places as the place of occurrence of the external cause; Y99.8 Other external cause status
CPT/HCPCS: 12001; 73130; 90471; 90715; 99283; J2001; Q0092

== ENCOUNTER 2023-02-26 13:14 | Emergency (ER) | payer MEDICAID ==
[~2023-02-26] VITALS: Ht 180.3 cm; Wt 75.5 kg
[2023-02-26 13:16] VITALS: BP 137/84; PULSE 89; RESP 20; TEMP 97.7; O2SAT 95
== END 2023-02-26 13:51 | disposition home or self-care (01) ==
LOC: MED 13:14
DX: S61.412D Laceration without foreign body of left hand, subsequent encounter (principal); S21.112D Laceration without foreign body of left front wall of thorax without penetration into thoracic cavity, subsequent encounter; Z48.00 Encounter for change or removal of nonsurgical wound dressing; X58.XXXD Exposure to other specified factors, subsequent encounter
CPT/HCPCS: 99282